=== PATIENT | female | born 1985 ===

== ENCOUNTER 2019-09-22 08:14 | Inpatient (IN) | payer OTHER ==
[2019-09-22] MEDS ORDERED: LACTATED RINGERS 2,000 ML ONE (09:23)
[2019-09-22 09:54] LABS: Hematocrit 36.8 % (30.3-42.9); Hemoglobin 12.5 gm/dl (10.1-14.3); Mean Corpuscular HGB Conc 34 % (30-34); Mean Corpuscular Volume 88 fl (79-97); Platelet Count 230 K/mm3 (140-440); Red Blood Count 4.18 M/mm3 (3.65-5.03); Red Cell Distribution Width 14.3 % (13.2-15.2)
[2019-09-22] MEDS ORDERED: METOCLOPRAMIDE 10 MG/2 ML INJ IV NR (10:00)
[2019-09-22] MEDS ORDERED: LACTATED RINGERS 1,000 ML IV SCH (10:00)
[2019-09-22] MEDS ORDERED: OXYTOCIN 20 UNIT/1000ML DRIP 20 UNITS/1,000 ML BAG IV SCH ×2 (10:00→15:00)
[2019-09-22] MEDS ORDERED: BICITRA ORAL LIQD 30ML PO NR (10:00)
[2019-09-22] MEDS ORDERED: FAMOTIDINE 20 MG/2 ML INJ IV NR (10:00)
[2019-09-22] MEDS ORDERED: ceFAZolin/Water 2 GM/20 ML 2 GM/20 ML SYRINGE IV NR (10:00)
[2019-09-22 11:50] LABS: Basophils % (Auto) 0.4 % (0.0-1.8); Eosinophils % (Auto) 0.3 % (0.0-4.3); Hematocrit 35.9 % (30.3-42.9); Hemoglobin 12.8 gm/dl (10.1-14.3); Lymphocytes # (Auto) 1.7 K/mm3 (1.2-5.4); Lymphocytes % (Auto) 18.9 % (13.4-35.0); Mean Corpuscular HGB Conc 36 % (30-34); Mean Corpuscular Volume 88 fl (79-97); Monocytes # (Auto) 0.4 K/mm3 (0.0-0.8); Monocytes % (Auto) 4.6 % (0.0-7.3); Platelet Count 234 K/mm3 (140-440); Red Blood Count 4.08 M/mm3 (3.65-5.03); Red Cell Distribution Width 14.4 % (13.2-15.2)
--- NOTE | 2019-09-22 11:57 | History and Physical Report ---
History of Present Illness Date of examination: 09/22/19 Date of admission: 09/22/19 08:14 Chief complaint: Here for an elective repeat History of present illness: Term preg, RASHID 09/25/2019. 1 prior . Past History Past Surgical History: section - Obstetrical History Expected Date of Delivery: 09/25/19 Actual Gestation: 39 Week(s) 4 Day(s) : 4 Number of Living Children: 3 Medications and Allergies Allergies Allergy/AdvReac Type Severity Reaction Status Date / Time No Known Allergies Allergy Verified 09/22/19 09:30 Active Meds: Active Medications Citric Acid/Sodium Citrate (Bicitra) 30 ml PO ONCE NR Stop: 09/22/19 16:00 Last Admin: 09/22/19 11:22 Dose: 30 ml Documented by: Famotidine (Pepcid) 20 mg IV ONCE NR Stop: 09/22/19 16:00 Last Admin: 09/22/19 11:22 Dose: 20 mg Documented by: Oxytocin/Sodium Chloride (Pitocin/Ns 20 Unit/1000ml Drip) 20 units in 1,000 mls @ 0 mls/hr IV TITR JUSTIN Lactated Ringer's (Lactated Ringers) 1,000 mls @ 2,250 mls/hr IV PREOP JUSTIN Stop: 09/23/19 10:27 Cefazolin Sodium (Ancef/Sterile Water 2 Gm/20 Ml) 2 gm in 20 mls @ 80 mls/hr IV PREOP NR; Protocol Stop: 09/22/19 16:00 Metoclopramide HCl (Reglan) 10 mg IV ONCE NR Stop: 09/22/19 16:00 Last Admin: 09/22/19 11:22 Dose: 10 mg Documented by: Review of Systems All systems: negative - Vital Signs Vital signs: Vital Signs Pulse Pulse Ox 75 97 09/22/19 08:54 09/22/19 08:54 Temp Pulse Resp BP Pulse Ox 98.2 F 66 16 118/73 97 09/22/19 09:32 09/22/19 10:20 09/22/19 09:32 09/22/19 09:32 09/22/19 10:20 - Physical Exam Lungs: Positive: Normal air movement Abdomen: Positive: normal appearance. Negative: tenderness, guarding Uterus: Positive: normal size, enlarged, normal contour Deep Tendon Reflex Grade: Normal +2 - Obstetrical FHR: auscultation normal Results Result Diagrams: 09/22/19 09:20 Abnormal lab results 09/22/19 Range/Units 09:20 MCHC 36 H (30-34) % Seg Neutrophils % 75.8 H (40.0-70.0) % All other labs normal. Assessment and Plan - Patient Problems (1) Previous delivery, antepartum Current Visit: Yes Status: Acute Plan to address problem: Of and an elective repeat patient chose the latter and gave an informed consent.
--- NOTE | 2019-09-22 12:00 | Anesthesia Day of Surgery ---
Anesthesia Day of Surgery - Day of Surgery Patient Examined: Yes Patient H&P Reviewed: Yes Patient is NPO: Yes Beta Blockers: No Cardiac Clearance: No Pulmonary Clearance: No Mookie's Test: N/A
--- NOTE | 2019-09-22 12:01 | Anesthesia Consultation ---
Anesthesia Consult and Med Hx Date of service: 09/22/19 - Airway Anesthetic Teeth Evaluation: Good ROM Head & Neck: Adequate Mental/Hyoid Distance: Adequate Mallampati Class: Class II Intubation Access Assessment: Probably Good - Pulmonary Exam CTA: Yes - Cardiac Exam Cardiac Exam: RRR - Pre-Operative Health Status ASA Pre-Surgery Classification: ASA2 Proposed Anesthetic Plan: Spinal - Pulmonary Hx Smoking: No Hx Asthma: No Hx Respiratory Symptoms: No SOB: No COPD: No Home Oxygen Therapy: No Hx Pneumonia: No Hx Sleep Apnea: No - Cardiovascular System Hx Hypertension: No Hx Coronary Artery Disease: No Hx Heart Attack/AMI: No Hx Angina: No Hx Percutaneous Transluminal Coronary Angioplasty (PTCA): No Hx Cardia Arrhythmia: No Hx Pacemaker: No Hx Internal Defibrillator: No Hx Valvular Heart Disease: No Hx Heart Murmur: No Hx Peripheral Vascular Disease: No - Central Nervous System Hx Neuromuscular Disorder: No Hx Seizures: No CVA: No Hx Back Pain: No Hx Psychiatric Problems: No - Gastrointestinal Hx Ulcer: No Hx Gastroesophageal Reflux Disease: No - Endocrine Hx Renal Disease: No Hx End Stage Renal Disease: No Hx Cirrhosis: No Hx Liver Disease: No Hx Insulin Dependent Diabetes: No Hx Non-Insulin Dependent Diabetes: No Hx Thyroid Disease: No Hx Hypothyroidism: No Hx Hyperthyroidism: No - Hematic Hx Anemia: No Hx Sickle Cell Disease: No - Other Systems Hx Alcohol Use: No Hx Substance Use: No Hx Cancer: No Hx Obesity: No
[2019-09-22] MEDS ORDERED: ONDANSETRON 4 MG/2 ML INJ IV PRN ×2 (12:30→14:24)
[2019-09-22] MEDS ORDERED: ceFAZolin/STERILE WATER 2 GM/20 ML SYRINGE IV ONE (12:30)
[2019-09-22] MEDS ORDERED: HYDROmorphone 1 MG/1 ML INJ IV PRN (12:30)
[2019-09-22] MEDS ORDERED: OXYTOCIN 10 UNIT/1 ML INJ ONE (13:51)
[2019-09-22] MEDS ORDERED: DEXMEDETOMIDINE 200 MCG/2 ML VIAL IV ONE (13:51)
[2019-09-22] MEDS ORDERED: KETOROLAC 30 MG/1 ML INJ ONE (14:18)
[2019-09-22] MEDS ORDERED: ONDANSETRON 4 MG/2 ML INJ ONE (14:18)
[2019-09-22] MEDS ORDERED: LANOLIN/ZINC/DIMETHICONE (LANSINOH) 7 GM TP PRN (14:24)
[2019-09-22] MEDS ORDERED: NALOXONE 0.4 MG/1 ML INJ IV PRN (14:24)
[2019-09-22] MEDS ORDERED: ACETAMINOPHEN 325 MG TAB PO PRN (14:24)
[2019-09-22] MEDS ORDERED: WITCH HAZEL/ GLYCERIN PAD TP PRN (14:24)
[2019-09-22] MEDS ORDERED: MORPHINE 4 MG/1 ML INJ IV PRN (14:24)
--- NOTE | 2019-09-22 14:34 | Operative Report ---
Operative Report Operative Report: Date of surgery: August 22, 2019 Preoperative diagnoses: Term , previous section Postoperative diagnoses: The same. Operation: Lower segment transverse delivery Surgeon:Omdi Acosta MD Trimmer Sorter: Isauro Patton CRNA Anesthesia: Spinal block Estimated blood loss: 600 mL Complications: None There was a live baby boy in cephalic presentation, weight 3500 g, Apgars 8 and 9. Both ovaries and fallopian tubes as well as the uterus were all grossly normal. No significant peritoneal adhesions were identified within the pelvis. Procedure in details: The patient was taken to the operating room and given a spinal block. Patient was placed in the straight supine position and a Bernal catheter was inserted. The patient was prepped in the abdomen. The drapes were placed. A timeout was done. With the go ahead from the inspector open die, a Pfannenstiel incision was made. This incision was carried across the subcutaneous layer to the fascia which was also divided transversely. The recti abdominis muscle flaps were stripped from the fascia using a combination of blunt and sharp dissections. The muscles were in the midline to gain access to the anterior parietal peritoneum which was divided after excluding any underlying viscera. The access to the peritoneal cavity was then widened by manual stretching. The bladder blade was applied. The utero vesicle peritoneal flap was divided transversely allowing the bladder to be displaced caudally. The uterine incision was placed in the lower segment transversely. The uterine incision was carried to the decidual layer. The uterine incision was extended on both sides using the bandage scissors. The amniotic sac was ruptured with clear fluid. The head was lifted out of the false maternal pelvis and delivered through the incision using fundal pressure. The airways were bulb suctioned beginning with the mouth. Continuing fundal pressure combined with traction on the mandibular processes of the jaw delivered the rest of the baby. The umbilical cord was double clamped and divided. The baby was carefully transferred to the pediatric team. The placenta was manually removed from the uterine cavity. The uterine cavity was explored and was empty of any placental remnants. The uterine incision was repaired in 2 layers with #1 Vicryl. The surgical line on the uterus was hemostatic. Blood and clots were cleared from the peritoneal cavity. The anterior parietal peritoneum was repaired with #1 Vicryl. The fascia was repaired with #1 Vicryl. The subcutaneous layer was made hemostatic using the Bovie before the skin was closed subcuticularly with 4-0 Vicryl. There were no complications. The estimated blood loss was 600 mL. All sponges and instrument counts were correct. Patient was safely transferred to the recovery room.
--- NOTE | 2019-09-22 14:51 | Post Anesthesia Evaluation ---
- Post Anesthesia Evaluation Patient Participated: Yes Airway Patent: Yes Stable Respiratory Function: Yes Nausea/Vomiting: No Temp > 96.8F: Yes Pain Manageable: Yes Adequeate Hydration: Yes Anesthesia Complications: No Block Receding Appropriately: Yes Patient on Ventilator: No
[2019-09-22] MEDS: KETOROLAC 30 MG/1 ML INJ IV PRN (17:59)
[2019-09-22] MEDS: ceFAZolin/NS 1 GM/50 ML 1 GM/50 ML BAG IV SCH (17:59)
[2019-09-22] MEDS ORDERED: SODIUM CHLORIDE 0.9% 500 ML 500 ML ONE (20:07)
[2019-09-23] MEDS: ceFAZolin/NS 1 GM/50 ML 1 GM/50 ML BAG IV SCH (01:55)
[2019-09-23] MEDS: KETOROLAC 30 MG/1 ML INJ IV PRN (03:03)
[2019-09-23] MEDS ORDERED: TETANUS,DIPH,PERTUSS(ACELL) VACCINE 0.5 ML SYRINGE IM ONE (05:13)
[2019-09-23] MEDS: HYDROcodone/ACETAMINOPHEN 5-325 MG TAB PO PRN ×3 (06:05→23:26)
[2019-09-23 06:27] LABS: Hematocrit 31.8 % (30.3-42.9); Hemoglobin 10.9 gm/dl (10.1-14.3)
[2019-09-23] MEDS: IBUPROFEN 800 MG TAB PO PRN (09:23)
[2019-09-23] MEDS: FERROUS SULFATE 325 MG TAB PO SCH (09:23)
--- NOTE | 2019-09-23 09:51 | Progress Note ---
Assessment and Plan - Patient Problems (1) S/P repeat low transverse Current Visit: Yes Status: Acute Plan to address problem: POD 1 - stable Continue routine postop orders Ambulation encouraged, as tolerated Abdominal binder ordered Anticipate discharge in 24 to 48 hours (2) Single live Current Visit: Yes Status: Acute Subjective - Subjective Date of service: 09/23/19 Principal diagnosis: POD #1; s/p Repeat LTCS Interval history: see [employer] - H&P and Operative Report Patient reports: appetite normal, voiding normally, pain well controlled, flatus, ambulating normally, no dizzy ambulation, no bowel movement : doing well Objective - Vital Signs Latest vital signs: Vital Signs Temp Pulse Resp BP BP Pulse Ox 09/23/19 04:10 98.4 F 76 18 133/74 98 09/23/19 00:33 98.3 F 57 L 18 131/72 98 09/22/19 21:21 98.0 F 58 L 20 134/80 99 09/22/19 16:09 97.6 F 49 L 18 133/70 100 09/22/19 15:30 47 L 17 140/72 99 09/22/19 15:15 45 L 17 115/54 98 09/22/19 15:00 57 L 16 96/51 98 09/22/19 14:45 54 L 17 103/59 96 09/22/19 14:40 54 L 17 106/60 96 09/22/19 14:35 54 L 18 89/45 96 09/22/19 14:28 97.7 F 57 L 18 88/42 96 09/22/19 13:11 81 98 09/22/19 13:06 81 97 09/22/19 13:01 91 H 98 09/22/19 12:56 95 H 97 09/22/19 12:51 76 97 09/22/19 12:46 90 96 09/22/19 12:41 92 H 97 09/22/19 12:37 94 H 134/69 09/22/19 12:36 92 H 97 09/22/19 10:20 66 97 09/22/19 10:15 66 97 09/22/19 10:10 67 98 09/22/19 10:05 66 98 09/22/19 10:00 68 97 Intake and Output 09/22/19 09/23/19 09/23/19 23:59 07:59 15:59 Intake Total 170 Output Total 2600 900 1100 Balance -2430 900 -1100 Intake: IV 50 ANCEF/NS 1 GM/50 ML 1 gm 50 In 50 ml @ 100 mls/hr IV Q8H [facility] Rx#:[id number] Oral 120 Output: Urine 2600 900 1100 Indwelling Catheter 2600 900 Void 1100 Other: Total, Intake Amount 120 Total, Output Amount 1200 900 400 # Voids Indwelling Catheter 1 Void 2 - Exam Cardiovascular: Present: Regular rate Lungs: Present: Clear to auscultation Abdomen: Present: normal appearance, soft Vulva: both: normal Uterus: Present: normal, firm, fundal height below umbilicus Extremities: Present: normal Incision: Present: normal, dry, intact, dressed Comments: scant lochia - Labs Labs: Abnormal lab results 09/22/19 Range/Units 09:20 MCHC 36 H (30-34) % Seg Neutrophils % 75.8 H (40.0-70.0) %
[2019-09-24] MEDS: IBUPROFEN 800 MG TAB PO PRN ×2 (05:50→23:21)
[2019-09-24] MEDS: FERROUS SULFATE 325 MG TAB PO SCH (09:29)
--- NOTE | 2019-09-24 10:58 | Progress Note ---
Assessment and Plan A: day 2 S/P repeat LTCS. Anemia. P: Continue iron supplementation. Continue ambulation. Anticipate discharge home tomorrow. Subjective - Subjective Date of service: 09/24/19 Principal diagnosis: POD #2; s/p Repeat LTCS Interval history: /postop day 2 S/P repeat LTCS. Voiding without difficulty, ambulating well, tolerating a regular diet, passing gas. Patient reports: appetite normal, voiding normally, pain well controlled, flatus, ambulating normally, no dizzy ambulation, no nauseated : doing well Objective - Vital Signs Latest vital signs: Vital Signs Temp Pulse Resp BP BP Pulse Ox 09/24/19 08:15 98.6 F 66 20 106/62 09/24/19 05:50 20 09/24/19 00:12 97.9 F 63 20 135/77 99 09/23/19 23:26 20 Intake and Output 09/23/19 09/24/19 09/24/19 23:59 07:59 15:59 Intake Total 840 240 320 Balance 840 240 320 Intake: Oral 480 320 Intake, Free Water 360 240 Other: Total, Intake Amount 480 320 # Voids Void 1 1 - Exam Cardiovascular: Present: Regular rate, Normal S1, Normal S2 Lungs: Present: Clear to auscultation Abdomen: Present: normal appearance, soft, normal bowel sounds. Absent: distention, tenderness, guarding, rigidity Uterus: Present: normal, firm, fundal height below umbilicus. Absent: bogginess, tenderness Extremities: Present: normal. Absent: tenderness Incision: Present: normal, dry, dressed
[2019-09-25] MEDS: IBUPROFEN 800 MG TAB PO PRN (09:04)
[2019-09-25] MEDS: FERROUS SULFATE 325 MG TAB PO SCH (09:04)
--- NOTE | 2019-09-25 11:12 | Progress Note ---
Assessment and Plan A: /postop day 3 S/P repeat LTCS. Anemia. P: Discharge patient home today. Discussed with patient discharge instructions and warning signs, care of incision, and activity restrictions. Advised patient to continue taking her vitamin and iron supplements at home. Advised patient to avoid intercourse, lifting and housework, driving. Advised patient to come to OB office in 1 week for incision check; advised patient she will need to call for appointment. Patient voiced understanding of all instructions. Subjective - Subjective Date of service: 09/25/19 Principal diagnosis: POD #3; s/p Repeat LTCS Interval history: /postop day 3 S/P repeat LTCS. Voiding without difficulty, ambulating well, tolerating a regular diet, passing gas. Patient wants to go home today. Patient reports: appetite normal, voiding normally, pain well controlled, flatus, ambulating normally, no dizzy ambulation, no nauseated : doing well Objective - Vital Signs Latest vital signs: Vital Signs Temp Pulse Resp BP BP Pulse Ox 09/25/19 08:42 97.8 F 68 18 122/67 98 09/25/19 00:25 98.3 F 69 18 105/64 97 09/24/19 23:21 18 09/24/19 16:05 98.2 F 65 20 125/59 Intake and Output 09/24/19 09/25/19 09/25/19 23:59 07:59 15:59 Intake Total 680 480 Output Total 300 Balance 380 480 Intake: Oral 440 Intake, Free Water 240 480 Output: Urine 300 Void 300 Other: Total, Intake Amount 120 Total, Output Amount 300 # Voids Void 2 1 - Exam Cardiovascular: Present: Regular rate, Normal S1, Normal S2 Lungs: Present: Clear to auscultation Abdomen: Present: normal appearance, soft, normal bowel sounds. Absent: distention, tenderness, guarding, rigidity Uterus: Present: normal, firm, fundal height below umbilicus. Absent: bogginess, tenderness Extremities: Present: normal. Absent: tenderness, edema Incision: Present: normal, dry, intact
--- NOTE | 2019-09-25 11:13 | Discharge Summary ---
Providers - Providers Date of Admission: 09/22/19 08:14 Date of discharge: 09/25/19 Attending physician: DWAINE VICENTE MD Primary care physician: DWAINE VICENTE MD Hospitalization Reason for admission: section Delivery: Procedure: repeat low transverse Incision: normal, dry, intact Other procedures: none complications: none Discharge diagnosis: IUP at term delivered [place] baby: male Pertinent studies: Labs Hospital course: Normal hospital course. Condition at discharge: Good Disposition: DC-01 TO HOME OR SELFCARE - Discharge Diagnoses (1) Term delivered Status: Acute (2) Anemia Status: Acute Plan - Discharge Medications Prescriptions: HYDROcodone/APAP 5-325 [[place] 5/325] 1 - 2 each PO Q4HR PRN #30 tablet PRN Reason: Pain - Provider Discharge Summary Activity: routine, no sex for 6 weeks, no heavy lifting 4 weeks, no strenuous exercise Diet: routine Instructions: routine Additional instructions: Continue taking your vitamins and iron supplements at home. Call your doctor immediately for: * Fever > 100.5 * Heavy vaginal bleeding ( >1 pad per hour) * Severe persistent headache * Shortness of breath * Reddened, hot, painful area to leg or breast * Drainage or odor from incision. * Keep incision clean and dry at all times and follow doctor's instructions regarding bathing/showering - Follow up plan Follow up: DWAINE VICENTE MD [Primary Care Provider] - 7 Days Forms: [facility] Discharge Summary
[2019-09-25] MEDS ORDERED: FLU VACC QUAD 2019-20 (3 YR UP)/PF 60 MCG/0.5 ML SYRINGE IM ONE (12:00)
[2019-09-25 14:56] VITALS: BP 125/82
== END 2019-09-25 14:59 | disposition home or self-care (01) | DRG 788 ==
LOC: APU 08:14 → LD 08:15 → OB 16:03
PROVIDERS: ADMIT Obstetrics & Gynecology; ATTEND Obstetrics & Gynecology
PROC: 10D00Z1 Extraction of Products of Conception, Low, Open Approach (ICD-10-PCS; principal; 2019-09-22)
PROC: 3E0234Z Introduction of Serum, Toxoid and Vaccine into Muscle, Percutaneous Approach (ICD-10-PCS; 2019-09-23)
DX: O34.219 Maternal care for unspecified type scar from previous cesarean delivery (principal); Z3A.39 39 weeks gestation of pregnancy; Z37.0 Single live birth; Z23 Encounter for immunization; O90.81 Anemia of the puerperium; D64.9 Anemia, unspecified
CPT/HCPCS: 36415; 85014; 85018; 85025; 85027; 86592; 86850; 86900; 86901; 90686; 90715; G0378; J0690; J1885; J2405; J2590; J2765; J3490; J7040; J7120